=== PATIENT | female | born 1970 | race Two or more races ===

== ENCOUNTER 2025-07-06 11:00 | Inpatient (IN) | payer OTHER ==
[~2025-07-06] VITALS: Ht 157.5 cm; Wt 60.8 kg
[2025-07-06 11:28] VITALS: BP 109/72
[2025-07-06] MEDS ORDERED: HORIZANT300 MG PO (11:28)
[2025-07-16] MEDS ORDERED: BUPIVACAINE HCL/MPF 0.5% 30ML VIAL ONE (07:16)
[2025-07-16] MEDS ORDERED: HEMOSTATIC MATRIX 1 KIT KIT TOP ONE (07:17)
[2025-07-16] MEDS ORDERED: DIBUCAINE 30 GM TUBE ONE (07:17)
[2025-07-16] MEDS ORDERED: LIDOCAINE HCL 1%/EPINEPHRINE 20ML VIAL IJ ONE (07:17)
[2025-07-16] MEDS ORDERED: POVIDONE-IODINE 118 ML BOTT TOP ONE (07:17)
[2025-07-16] MEDS ORDERED: SUGAMMADEX SODIUM 200 MG/2 ML VIAL IV ONE (08:15)
[2025-07-16] MEDS ORDERED: OxyCODONE HCL 5 MG TABLET (ROXICODONE) PO PRN (08:30)
[2025-07-16] MEDS ORDERED: MORPHINE SULFATE 4 MG/ML CARTRIDGE IV PRN (08:30)
[2025-07-16] MEDS ORDERED: ONDANSETRON HCL 2 MG/ML VIAL IV PRN (08:30)
[2025-07-16] MEDS ORDERED: DEXTROSE 50 % IN WATER 0.5 G/ML DISP.SYRIN IV PRN (08:30)
[2025-07-16] MEDS ORDERED: RINGERS SOLUTION,LACTATED 1,000 ML IV SCH (08:30)
[2025-07-16] MEDS ORDERED: METRONIDAZOLE/SODIUM CHLORIDE 500 MG/100 ML PIGGYBACK IV ONE (09:00)
[2025-07-16] MEDS ORDERED: CEFTRIAXONE SODIUM 2,000 MG VIAL IV ONE (09:00)
[2025-07-16] MEDS ORDERED: FAMOTIDINE/PF 20 MG/2 ML VIAL IV PUSH SCH (09:00)
[2025-07-16 10:20] LABS: BASO % 1.1 % (0.1-1.2); EOS # 0.23 (0.04-0.54); EOS % 2.6 % (0.7-7.0); LYMPH # 2.68 (1.18-3.74); LYMPH % 30.0 % (19.3-53.1); MEAN PLATELET VOLUME 10.90 fl (9.4-12.4); MONO # 0.73 (0.24-0.82); MONO % 8.2 % (4.7-12.5); NEUT # 5.16 (1.56-6.13); NEUT % 57.9 % (34.0-71.1); RED CELL DISTRIBUTION WIDTH 12.6 % (11.6-14.4)
[2025-07-16 12:10] LABS: BUN CREA RATIO 29.0 (7.0-25.0); CREATININE SERUM 0.45 mg/dL (0.55-1.02); GFR 146.31; GLUCOSE FASTING 95.0 mg/dL (65-100); OSMOLALITY SERUM 285.0 MOSM/KG (275-295)
[2025-07-16] MEDS ORDERED: ACETAMINOPHEN 500 MG GEL..CAP PO SCH (14:00)
[2025-07-16] MEDS ORDERED: ACETAMINOPHEN 500 MG GEL..CAP PO ONE (14:25)
[2025-07-16 18:35] VITALS: BP 108/66; O2SAT 98
[2025-07-17 00:30] VITALS: BP 119/68; O2SAT 98
[2025-07-17 08:00] VITALS: BP 111/66; O2SAT 98
[2025-07-17 10:41] LABS: BASO % 0.8 % (0.1-1.2); EOS # 0.17 (0.04-0.54); EOS % 1.5 % (0.7-7.0); LYMPH # 2.21 (1.18-3.74); LYMPH % 20.0 % (19.3-53.1); MEAN PLATELET VOLUME 10.70 fl (9.4-12.4); MONO # 0.61 (0.24-0.82); MONO % 5.5 % (4.7-12.5); NEUT # 7.95 (1.56-6.13); NEUT % 72.0 % (34.0-71.1); RED CELL DISTRIBUTION WIDTH 12.7 % (11.6-14.4)
[2025-07-17 11:17] LABS: BUN CREA RATIO 31.0 (7.0-25.0); CREATININE SERUM 0.32 mg/dL (0.55-1.02); GFR 216.84; GLUCOSE FASTING 101.0 mg/dL (65-100); OSMOLALITY SERUM 280.0 MOSM/KG (275-295)
== END 2025-07-17 22:58 | disposition home or self-care (01) | DRG 349 ==
LOC: O/R 07-16 06:00 → SURH 07-16 10:00
PROVIDERS: ADMIT Surgery; ATTEND Surgery
PROC: 0DBP7ZZ Excision of Rectum, Via Natural or Artificial Opening (ICD-10-PCS; principal; 2025-07-16 10:00)
DX: D12.8 Benign neoplasm of rectum (principal); D37.5 Neoplasm of uncertain behavior of rectum